=== PATIENT | female | born 1955 | race Caucasian/White ===

== ENCOUNTER 2019-11-02 02:13 | Day surgery (SDC) | payer BC, SELFPAY ==
[2019-10-19 11:58] VITALS: BMI 28.1
--- NOTE | 2019-10-31 22:43 | HP_ITS ---
DATE OF SERVICE: 11/02/2019 PREOPERATIVE DIAGNOSIS: Squamous cell carcinoma, well differentiated, left midline pretibia. HISTORY OF PRESENT ILLNESS: This site was biopsied by Dr. Gardner on 10/05/2019. The biopsy site was 12 mm x 11 mm and was visible on her visit with me on 10/17/2019. The patient is 64. The biopsy is squamous cell carcinoma, well differentiated and the request is for excision of this. The patient understands that this area is difficult to close, sometimes partly due to her age, partly due to it being on the lower extremity, and partly due to consequences of swelling in the leg or other reason for poor circulation. She is agreeable to performing this surgery under local anesthetic and realizes there will be frozen section sent and that a full-thickness skin graft from another location such as her thigh on the same side is a very great possibility. She understands that requires special dressings and there will be a donor site and there is a possibility of infection or skin graft loss or delayed healing. PAST MEDICAL HISTORY: Significant for massive weight loss following a gastric bypass in 2007. She has kept her weight low since then. She is not taking any medications for renal failure, but she sees Dr. Damaris jeffrey as her primary care physician. PAST SURGICAL HISTORY: Other surgeries include cholecystectomy in 1996, appendectomy around 2001. She had the laparoscopic Lien-en-Y in 2007. She had a lower body lift in 2011. ALLERGIES: TO PENICILLIN AND CIPRO SHE SAYS. CURRENT MEDICATIONS: Include: 1. Bupropion 300 mg 2 per day. 2. Lisinopril 5 mg daily. 3. Clorazepate 3.75 mg 2 per day. 4. Janumet two per day. 5. Pindolol 5 mg per day. REVIEW OF SYSTEMS: She is a type 2 diabetic. Says she has slight diminished renal capacity. She has intolerance to NSAIDs. She has a history of pancreatitis. She has some arthritic pain and she has high blood pressure. FAMILY HISTORY: Noncontributory. SOCIAL HISTORY: She is 64. She appears her age. She is very active. PHYSICAL EXAMINATION: HEENT: Unremarkable. CHEST: Clear to auscultation. HEART: Regular rate and rhythm by palpation. ABDOMEN: Soft and nontender. EXTREMITIES: Normal. She has some lipodystrophy in various parts of her body. She has had a nice outcome from her lower body lift. SKIN: Reveals the biopsy site on the left midline of the pretibia, the left lower extremity. ASSESSMENT: Squamous cell carcinoma of left midline pretibia. DIAGNOSIS: Excision of squamous cell carcinoma on the left midline pretibia with frozen section and possible full-thickness skin graft. This will be under local anesthetic. D I MT: Suzette VICTORIA
[2019-11-02] VITALS (10 sets, daily range): BP systolic 90–122; BP diastolic 46–76; PULSE 68–82; RESP 16–20; TEMP 36.1; O2SAT 97–100
--- NOTE | 2019-11-02 07:19 | WPDHPUPDATE1 ---
History and Physical Update Update Date/Time: 11/02/19 07:19 History and Physical has been reviewed, including an updated exam of the patient. There are NO changes in the patient's condition. Risks, benefits, and alternatives have been discussed and questions answered. Patient agrees to proceed with procedure.
--- NOTE | 2019-11-02 07:59 | P.OPB_ITS ---
Procedure Note - Brief Procedure Note - Brief Date of procedure: 11/02/19 Pre-op diagnosis: Squamous Cell Carcinoma Lt Midline Pretibia Post-op diagnosis: same Procedure performed: 1.7 cm excision of SCC of left pretibia with FS and complex repair 6.0. Anesthesia: local Surgeon: Sergio Mcmahon MD Seamer Elastic Band: Salomon Rasheed Estimated blood loss (mL): 2 Drains: No Packing: No Pathology: yes Complications: No immediate complications Condition: stable Disposition: same day
[2019-11-02] MEDS: LIDO 1%/EPINEPHRINE 1:100,000 20 ML VIAL INFILTRATE (08:25)
--- NOTE | 2019-11-02 09:15 | P.OP_ITS ---
Procedure Note - Detailed Date of procedure: 11/02/19 Pre-op diagnosis: Squamous Cell Carcinoma Lt Midline Pretibia Post-op diagnosis: same (Squamous cell carcinoma of the left midline PRE tibia) Procedure performed: 1.7 cm excision of squamous cell carcinoma of the left midline PRE tibia with frozen section and complex repair 6.0 cm Description of procedure: The site was marked in the holding area. The patient was taken to the operating room and placed supine on the operating table. A time-out was held and confirmed. The extremity was prepped and draped in usual fashion including the left thigh for potential skin graft donor site. The site of the tumor was marked for margins and axis. The site was locally infiltrated with 1% lidocaine with epinephrine. The full-thickness skin ellipse to include subcutaneous tissue was incised and elevated from the wound. The most superior aspect was marked with a suture for the 12 o'clock position. This tissue was sent to pathology for frozen section. While the tissue was out, the margins of this wound were undermined 2 cm in all directions with sharp and blunt dissection at the deep fascial level. This allowed us to coapted wound margins using 3-0 intradermal and superficial fas cial sutures. Our ability to do this obviated the need for a full-thickness skin graft. The pathologist reported the presence of very little squamous cell carcinoma and all margins free. The closure was completed with removal of standing cones at both ends, additional deeply position Vicryl sutures and closure of the skin with a running 5 0 nylon suture. A Xeroform, gauze, Tegaderm dressing was applied. The patient is discharged home with a prescription for tramadol 50 mg number 8. Surgeon: Sergio Mcmahon MD
== END 2019-11-02 09:56 | disposition home or self-care (01) ==
PROVIDERS: PCP Family Medicine; Visit Provider Plastic Surgery
PROC: (CPT 11602; principal; 2019-11-02 07:30)
DX: C44.729 Squamous cell carcinoma of skin of left lower limb, including hip (principal); I10 Essential (primary) hypertension; Z98.84 Bariatric surgery status
CPT/HCPCS: 11602; 13121; 88305; 88331; A9270

== ENCOUNTER 2020-11-26 13:31 | Outpatient (CLI) | payer BC, SELFPAY | END 2020-11-26 13:32 | disposition home or self-care (01) | LOC: ANHCOVIDVC 13:31 | PROVIDERS: PCP Family Medicine | DX: Z23 Encounter for immunization (principal) | CPT/HCPCS: 0001A; 91300 ==

== ENCOUNTER 2020-12-17 13:30 | Outpatient (CLI) | payer BC, SELFPAY | END 2020-12-17 13:31 | disposition home or self-care (01) | LOC: ANHCOVIDVC 13:30 | PROVIDERS: PCP Family Medicine | DX: Z23 Encounter for immunization (principal) | CPT/HCPCS: 0002A; 91300 ==

== ENCOUNTER → 2020-12-24 01:36 | Outpatient (CLI) | payer BC, SELFPAY ==
[2020-12-24 20:13] LABS: SARS-CoV-2 RNA PCR Negative
== END ==
PROVIDERS: PCP Family Medicine; Visit Provider Plastic Surgery
DX: Z01.812 Encounter for preprocedural laboratory examination (principal); Z20.822 Contact with and (suspected) exposure to COVID-19
CPT/HCPCS: C9803; U0003; U0005

== ENCOUNTER 2020-12-24 08:43 | Outpatient (CLI) | payer BC, SELFPAY ==
--- NOTE | 2020-12-24 08:30 | ECG_ITS ---
Measurements Intervals [place] Rate: 68 P: 67 WA: 141 QRS: -35 QRSD: 101 T: 93 QT: 365 QTc: 390 Interpretive Statements SINUS RHYTHM LEFT AXIS DEVIATION BORDERLINE R WAVE PROGRESSION, ANTERIOR LEADS NONSPECIFIC T-WAVE ABNORMALITY- HIGH LATERAL LEADS BASELINE ARTIFACT- I, II, III, AVR, AVL, AVF, V6 BORDERLINE ECG Electronically Signed On 12-24-2020 9:09:28 CDT by Cuate Colunga D.O.
[2020-12-24 09:08] LABS: Hematocrit 37.2 % (37.0-47.0); Hemoglobin 11.6 g/dL (12.0-15.0)
[2020-12-24 09:24] LABS: Anion Gap 9 mmol/L (8-16); Blood Urea Nitrogen 34 mg/dL (7-17); Calcium 9.1 mg/dL (8.4-10.2); Carbon Dioxide 25 mmol/L (22-30); Chloride 106 mmol/L (98-107); Estimated Glomerular Filt Rate 27; Glucose 116 mg/dL (65-105); Potassium 4.7 mmol/L (3.4-5.0); Sodium 140 mmol/L (137-145)
== END 2020-12-24 08:44 | disposition home or self-care (01) ==
LOC: ANHSURGERY 08:47
PROVIDERS: Anesthesiology; PCP Family Medicine; Visit Provider Plastic Surgery
DX: Z01.818 Encounter for other preprocedural examination (principal); I10 Essential (primary) hypertension; E11.9 Type 2 diabetes mellitus without complications; D64.9 Anemia, unspecified
CPT/HCPCS: 36415; 80048; 85014; 85018; 93005

== ENCOUNTER 2020-12-27 01:48 | Day surgery (SDC) | payer BC, SELFPAY ==
[2020-12-17 18:06] VITALS: BMI 21.2
--- NOTE | 2020-12-27 07:26 | WPDHPUPDATE1 ---
History and Physical Update Update Date/Time: 12/27/20 07:26 History and Physical has been reviewed, including an updated exam of the patient. There are NO changes in the patient's condition. Risks, benefits, and alternatives have been discussed and questions answered. Patient agrees to proceed with procedure.
[2020-12-27] MEDS: LACTATED RINGERS 1,000 ML 30 ML IV CONT (08:00)
[2020-12-27 08:08] LABS: Glucose Point of Care 109 (65-105)
[2020-12-27 08:09] VITALS: BP 129/58; PULSE 77; TEMP 36.6; O2SAT 100
[2020-12-27 08:15] LABS: INR 0.9; Prothrombin Time 13.1 Seconds (11.1-14.7)
[2020-12-27 08:16] LABS: Partial Thromboplastin Time 34.3 SECONDS (22.3-36.8)
--- NOTE | 2020-12-27 09:08 | WPDANESEPPF ---
Anes - Initial Pre Proc Eval Procedure: Operation Date: 12/27/20 09:15 Proposed Procedures p Excision Of Squamous Cell Carcinoma In Situ Left Dorsal Foot, With Frozen Section And Full Thickness Skin Graft - Sergio Mcmahon MD Date/Time: 12/27/20 09:08 Surgeon: Sergio Mcmahon MD Pre Op Diagnosis: Squamous Cell Carcinoma In Situ Left Dorsal Foot Patient Data Age: 65 Gender: F Height: 5 ft 8 in Weight: 70.5 kg Last Vital Signs Temp 36.6 C 12/27/20 08:09 Pulse 77 12/27/20 08:09 BP 129/58 L 12/27/20 08:09 Pulse Ox 100 12/27/20 08:09 Allergies Allergy/AdvReac Type Severity Reaction Status Date / Time ciprofloxacin Allergy Severe Hives Verified 12/27/20 07:43 Penicillins Allergy Mild Rash Verified 12/27/20 07:43 Home Medications Medication Instructions Recorded Confirmed Type Zyrtec 10 mg PO DAILY 10/19/19 12/27/20 History biotin 1 mg PO DAILY 10/19/19 12/27/20 History ferrous sulfate [iron] 325 mg PO DAILY 10/19/19 12/27/20 History bupropion HCl 300 mg 24 hr tablet, See Rx Instructions .ROUTE 09/04/20 12/27/20 Rx extended release .COMPLEX #90 tablet sitagliptin 50 mg-metformin 1,000 See Rx Instructions .ROUTE 09/04/20 12/27/20 Rx mg tablet .COMPLEX #180 tablet clorazepate dipotassium 3.75 mg PO BID 12/17/20 12/27/20 History cyanocobalamin (vitamin B-12) 5,000 mcg PO DAILY 12/17/20 12/27/20 History [Vitamin B-12] lisinopril 5 mg PO HS 12/17/20 12/27/20 History melatonin 1 mg PO HS PRN 12/17/20 12/27/20 History Laboratory Tests 12/27/20 12/27/20 07:54 08:04 PT 13.1 Seconds Seconds (11.1-14.7) INR 0.9 APTT 34.3 SECONDS SECONDS (22.3-36.8) POC Capillary Glucose 109 mg/dl mg/dl (65-105) Patient hx anesthesia problems: none Family hx anesthesia problems: none PMFSH Past Medical History Medical History Anxiety Chronic kidney disease, stage 3 (moderate) Hypertension Iron deficiency anemia Reactive depression Type 2 diabetes mellitus without complications Vitamin B 12 deficiency Vitamin D deficiency Surgical History Surgical History History of carpal tunnel release History of gastric bypass Family History Family History Other Acute myocardial infarction Carcinoma of colon Family history of malignant neoplasm Hypertension Social History Social History Smoking status: Never smoker Second hand tobacco smoke exposure: No Alcohol intake: never Substance use: never Living arrangements: alone Spiritual care concerns: No Anes - Eval Final PreProcedure Day of Procedure 12/27/20 09:08 Patient weight: normal Heart: regular rate and rhythm Lungs: clear to auscultation Airway: Mallampati scale class II Neurological: alert and oriented Last oral intake: >/= 8 hours ASA classification: III Emergent: no Anesthetic plan: proceed Anesthesia type and monitoring: general LMA and standard monitoring Informed Consent: The patient's anesthetic plan and its attendant risks and benefits were discussed with the patient/family/POA. Questions were solicited and answers provided to the satisfaction of the patient/family/POA.
[2020-12-27] MEDS: LIDO 1%/EPINEPHRINE 1:100,000 50 ML VIAL INFILTRATE (09:26)
--- NOTE | 2020-12-27 10:22 | PM.PROC ---
Procedure Note - Detailed Date of procedure: 12/27/20 Pre-op diagnosis: Squamous Cell Carcinoma In Situ Left Dorsal Foot Post-op diagnosis: same Procedure performed: 1.5 cm excision squamous cell carcinoma in situ left dorsal foot with frozen section and intermediate repair 2.8 cm Description of procedure: The biopsy site the left dorsal foot was marked in holding area. The patient was taken to the operating room and placed supine on the operating table. A time-out was held and confirmed. She was given IV anesthetic. The site was carefully outlined for axis and margins and infiltrated with 1% lidocaine with epinephrine. The full-thickness skin ellipse was taken to include skin and underlying fat. Neurovascular structures directly beneath this specimen were left in place. The specimen was sent for frozen section. When had to close the wound. This required undermining 2 cm or more in all directions. We were able to advance the skin from both sides to the midline and closed this wound with intradermal 3-0 Vicryl suture and 5 0 nylon suture. It was my purpose at the closure to avoid creation of compression directly over the dorsal neurovascular structures. That was the reason for undermining the skin so widely. destabilized the bandage. The wound was dressed Xeroform with, fluff gauze and Tegaderm. 0ver this was applied a light Kerlix wrap and 3 in Coban to stabilize the bandage. Anesthesia: MAC Surgeon: Sergio Mcmahon MD Estimated blood loss (mL): 2 Drains: No Packing: No Pathology: yes Complications: No immediate complications Condition: stable Disposition: same day Findings: No residual SCIS.
[2020-12-27 10:23] VITALS: BP 99/53; PULSE 74; RESP 14; O2SAT 95
[2020-12-27 10:40] LABS: Glucose Point of Care 88 (65-105)
[2020-12-27 10:50] VITALS: BP 117/65; PULSE 77; RESP 14; O2SAT 96
[2020-12-27 11:20] VITALS: BP 135/67; PULSE 67; RESP 16
== END 2020-12-27 11:26 | disposition home or self-care (01) ==
PROVIDERS: PCP Family Medicine; Visit Provider Plastic Surgery
PROC: (CPT 11622; principal; 2020-12-27 09:15)
DX: C44.729 Squamous cell carcinoma of skin of left lower limb, including hip (principal); I12.9 Hypertensive chronic kidney disease with stage 1 through stage 4 chronic kidney disease, or unspecified chronic kidney disease; E11.22 Type 2 diabetes mellitus with diabetic chronic kidney disease; N18.30 Chronic kidney disease, stage 3 unspecified; D50.9 Iron deficiency anemia, unspecified; E55.9 Vitamin D deficiency, unspecified; E53.8 Deficiency of other specified B group vitamins; F41.8 Other specified anxiety disorders; Z79.84 Long term (current) use of oral hypoglycemic drugs
CPT/HCPCS: 11622; 12042; 36415; 85610; 85730; 88305; 88331; A9270; J1100; J2250; J2405; J2704; J3010; J7120

== ENCOUNTER 2022-05-05 10:11 | Outpatient (CLI) | payer BC, SELFPAY ==
--- NOTE | ~2022-05-05 | MMUS_ITS ---
EXAMINATION: MM diagnostic sanjana BI w thom, US breast LT limited HISTORY: Pain of the outer left breast TECHNIQUE: Craniocaudal, mediolateral, and mediolateral oblique 3-D tomosynthesis images of the breas ts were performed and synthetic 2-D images were generated. CAD analysis was submitted and interpreted . High resolution limited left breast ultrasound was performed. COMPARISON: 09/24/2017, 09/23/2016, 08/09/2014 BREAST PARENCHYMAL COMPOSITION: The breasts are almost entirely fatty. FINDINGS: MAMMOGRAPHIC FINDINGS: There is no suspicious mass, calcification, or architectural distortion in either breast to suggest malignancy. There has been no suspicious interval change. Scattered benign-appearing calcifications a re present. ULTRASOUND: There is no evidence of focal abnormal solid or cystic mass in the vicinity of the patient's left lawrence ast pain. IMPRESSION: 1. No specific mammographic or sonographic correlate is identified for the patient's left breast pain . Further evaluation at this time should be based on clinical assessment. Continued follow-up physica l examination is recommended. 2. Recommend routine screening mammography in one year. BI-RADS Category 2: Benign finding(s). Reviewed, dictated and finalized at location A. IMPRESSION: 1. No specific mammographic or sonographic correlate is identified for the valentino ent's left breast pain. Further evaluation at this time should be based on clin ical assessment. Continued follow-up physical examination is recommended. 2. Recommend routine screening mammography in one year. BI-RADS Category 2: Benign finding(s).
== END 2022-05-05 10:12 | disposition home or self-care (01) ==
PROVIDERS: PCP Family Medicine; Visit Provider Obstetrics & Gynecology
DX: N64.4 Mastodynia (principal)
CPT/HCPCS: 76642; 77062; 77066; G0279

== ENCOUNTER 2022-05-29 12:04 | Emergency (ER) | payer OTHER, BC, SELFPAY ==
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
[2022-05-29 12:41] VITALS: BP 130/65; PULSE 76; RESP 18; TEMP 36.4; O2SAT 100
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
== END 2022-05-29 15:38 | disposition home or self-care (01) ==
PROVIDERS: Emergency Provider Emergency Medicine; PCP Family Medicine
DX: S13.4XXA Sprain of ligaments of cervical spine, initial encounter (principal); S16.1XXA Strain of muscle, fascia and tendon at neck level, initial encounter; I12.9 Hypertensive chronic kidney disease with stage 1 through stage 4 chronic kidney disease, or unspecified chronic kidney disease; E11.22 Type 2 diabetes mellitus with diabetic chronic kidney disease; N18.30 Chronic kidney disease, stage 3 unspecified; D50.9 Iron deficiency anemia, unspecified; E55.9 Vitamin D deficiency, unspecified; E53.8 Deficiency of other specified B group vitamins; Z98.84 Bariatric surgery status; M47.812 Spondylosis without myelopathy or radiculopathy, cervical region; M47.814 Spondylosis without myelopathy or radiculopathy, thoracic region; V49.40XA Driver injured in collision with unspecified motor vehicles in traffic accident, initial encounter
CPT/HCPCS: 72125; 72128; 99284

== ENCOUNTER → 2022-11-11 08:23 | Outpatient (CLI) | payer MEDICARE, SELFPAY ==
--- NOTE | ~2022-11-11 | US_ITS ---
EXAMINATION: US carotid duplex BI DATE: 11/11/2022 08:44 INDICATION: Type 2 diabetes mellitus without complications. TECHNIQUE: Grayscale, color Doppler, and pulsed Doppler images of the cervical carotid arteries were obtained. The degree of vessel stenosis is placed in one of the following categories: normal, <50%, 5 0-69%, >=70% but less than near-occlusion, near-occlusion, or total occlusion. Note that percent sten osis relative to normal distal artery lumen diameter is indirectly measured from velocity measurement s as described by Luiz, et al. Radiology 2003; [id number]. COMPARISON: None. FINDINGS: RIGHT: The right common carotid artery (CCA) peak systolic velocity (PSV) is 70 cm/s. The right internal car otid artery (ICA) PSV is 82 cm/s. The right ICA end-diastolic velocity (EDV) is 28 cm/s. The right IC A/CCA PSV ratio is 1.2. Grayscale and color Doppler images yield an estimate of <50% diameter reducti on from plaque in the ICA. There is antegrade flow in the right vertebral artery. LEFT: The left CCA PSV is 91 cm/s. The left ICA PSV is 103 cm/s. The left ICA EDV is 31 cm/s. The left ICA/ CCA PSV ratio is 1.1. Grayscale and color Doppler images yield an estimate of <50% diameter reduction from plaque in the ICA. There is antegrade flow in the left vertebral artery. IMPRESSION: 1. <50% stenosis in the right internal carotid artery. 2. <50% stenosis in the left internal carotid artery. Reviewed, dictated and finalized at location A. [facility]
== END ==
PROVIDERS: PCP Family Medicine; Visit Provider Family Medicine
DX: E11.9 Type 2 diabetes mellitus without complications (principal); I65.23 Occlusion and stenosis of bilateral carotid arteries
CPT/HCPCS: 93880

== ENCOUNTER 2022-12-08 06:59 | Day surgery (SDC) | payer MEDICARE, SELFPAY ==
[2022-11-27 08:43] VITALS: BMI 24.6
[2022-12-08 07:15] VITALS: BP 140/77; PULSE 72; RESP 14; TEMP 36.4; O2SAT 100
[2022-12-08 07:40] LABS: Glucose Point of Care 153 mg/dl (65-105)
--- NOTE | 2022-12-08 08:06 | PM.HPGS ---
History of Present Illness History of Present Illness Consent: Risks, benefits, and alternatives have been discussed and questions answered. Patient agrees to proceed with procedure. Chief complaint: Neoplasm Screening Narrative: Rachell Reece is a 67 year old female Presents for screening colonoscopy. Patient's current weight appetite and bowel movements are normal. She denies abdominal pain. She has had no bleeding. Family history is significant that her father had colon cancer. Patient's last colonoscopy 2016 was unremarkable. Patient also has a past medical history of gastric bypass in 2007 that has worked well. Review of Systems Review of Systems: Review of systems not contributory. [facility] Past Medical History Medical History (Updated 12/08/22 @ 08:07 by Salomon Brumfield MD) Anxiety Chronic kidney disease, stage 3 (moderate) FH: carotid endarterectomy Hypertension Iron deficiency anemia Reactive depression Type 2 diabetes mellitus without complications Vitamin B 12 deficiency Vitamin D deficiency Surgical History Surgical History History of carpal tunnel release History of gastric bypass Family History Family History Other Acute myocardial infarction Carcinoma of colon Family history of malignant neoplasm Hypertension Social History Social History (Updated 11/03/22 @ 13:52 by Lori Lundberg [facility]) Smoking status: Never smoker Second hand tobacco smoke exposure: No Alcohol intake: current Alcohol use details: rarely Substance use: never Substance use type: does not use Lack of Transportation: No Lack of Food: Never True Current Housing: I Have Housing Concerned About Future Housing: No Difficulty Paying Gas/Electric Bills: No Difficulty Paying for Meds: No Currently Unemployed: No Education: Trade/Vocational Certificate Difficulty w/ Childcare or Family Care: No Living arrangements: with family Gender identity (if verbalized by the patient): Female Spiritual care concerns: No Agree to blood products: Yes Meds Home Medications and Allergies Home Medications Medication Instructions Recorded Confirmed Type biotin 1 mg capsule 1 mg PO DAILY 10/19/19 12/08/22 History cetirizine 10 mg capsule (Zyrtec) 10 mg PO DAILY 10/19/19 12/08/22 History ferrous sulfate 325 mg (65 mg 325 mg PO DAILY 10/19/19 12/08/22 History iron) tablet (iron) cyanocobalamin (vitamin B-12) 5,000 mcg PO DAILY 12/17/20 12/08/22 History 5,000 mcg sublingual tablet (Vitamin B-12) melatonin 1 mg tablet 1 mg PO HS PRN INSOMNIA 12/17/20 12/08/22 History tramadol 50 mg tablet 50 - 100 mg PO Q6H PRN pain #10 12/27/20 12/08/22 Rx tabs bupropion HCl 300 mg 24 hr tablet, See Rx Instructions .Route 08/04/22 12/08/22 Rx extended release .COMPLEX #90 tabs lisinopril 5 mg tablet 5 mg PO HS #90 tabs 08/04/22 12/08/22 Rx simvastatin 20 mg tablet 20 mg PO DAILY #90 tabs 08/04/22 12/08/22 Rx sitagliptin phosphate 50 1 tablet PO BID #180 tabs 08/04/22 12/08/22 Rx mg-metformin 1,000 mg tablet (Janumet) trazodone 100 mg tablet 100 mg PO QHS PRN insomnia #30 tabs 11/03/22 12/08/22 Rx sodium,potassium,mag sulfates 17.5 See Rx Instructions PO .COMPLEX 11/04/22 12/08/22 Rx gram-3.13 gram-1.6 gram oral soln #354 mL (Suprep Bowel Prep Kit) Allergies Allergy/AdvReac Type Severity Reaction Status Date / Time ciprofloxacin Allergy Severe Hives Verified 12/08/22 07:23 Penicillins Allergy Mild Rash Verified 12/08/22 07:23 Exam Narrative: Physical exam reveals patient to be alert. Vital signs stable. HEENT exam is unremarkable. Patient is anicteric. Lungs are clear to auscultation and percussion. Heart is without murmur or extra sounds. Abdomen bowel sounds are present soft nontender with no organomegaly. Digital external rectal exam is normal.
--- NOTE | 2022-12-08 08:55 | WPDANESEPPF ---
Anes - Initial Pre Proc Eval Procedure: Operation Date: 12/08/22 08:30 Proposed Procedures p Screening Colonoscopy - Salomon Brumfield MD Date/Time: 12/08/22 08:55 Surgeon: Salomon Brumfield MD Pre Op Diagnosis: Neoplasm Screening Patient Data Age: 67 Gender: F Height: 1.71 m Weight: 69.5 kg Allergies Allergy/AdvReac Type Severity Reaction Status Date / Time ciprofloxacin Allergy Severe Hives Verified 12/08/22 07:23 Penicillins Allergy Mild Rash Verified 12/08/22 07:23 Home Medications Medication Instructions Recorded Confirmed Type biotin 1 mg capsule 1 mg PO DAILY 10/19/19 12/08/22 History cetirizine 10 mg capsule (Zyrtec) 10 mg PO DAILY 10/19/19 12/08/22 History ferrous sulfate 325 mg (65 mg 325 mg PO DAILY 10/19/19 12/08/22 History iron) tablet (iron) cyanocobalamin (vitamin B-12) 5,000 mcg PO DAILY 12/17/20 12/08/22 History 5,000 mcg sublingual tablet (Vitamin B-12) melatonin 1 mg tablet 1 mg PO HS PRN INSOMNIA 12/17/20 12/08/22 History tramadol 50 mg tablet 50 - 100 mg PO Q6H PRN pain #10 12/27/20 12/08/22 Rx tabs bupropion HCl 300 mg 24 hr tablet, See Rx Instructions .Route 08/04/22 12/08/22 Rx extended release .COMPLEX #90 tabs lisinopril 5 mg tablet 5 mg PO HS #90 tabs 08/04/22 12/08/22 Rx simvastatin 20 mg tablet 20 mg PO DAILY #90 tabs 08/04/22 12/08/22 Rx sitagliptin phosphate 50 1 tablet PO BID #180 tabs 08/04/22 12/08/22 Rx mg-metformin 1,000 mg tablet (Janumet) trazodone 100 mg tablet 100 mg PO QHS PRN insomnia #30 tabs 11/03/22 12/08/22 Rx sodium,potassium,mag sulfates 17.5 See Rx Instructions PO .COMPLEX 11/04/22 12/08/22 Rx gram-3.13 gram-1.6 gram oral soln #354 mL (Suprep Bowel Prep Kit) Laboratory Tests 12/08/22 07:36 POC Capillary Glucose 153 mg/dl H mg/dl (65-105) Patient hx anesthesia problems: none Family hx anesthesia problems: none Results Review: All pre-operative results and documents have been reviewed as part of the pre-operative evaluation. [facility] Past Medical History Medical History (Updated 12/08/22 @ 08:07 by Salomon Brumfield MD) Anxiety Chronic kidney disease, stage 3 (moderate) FH: carotid endarterectomy Hypertension Iron deficiency anemia Reactive depression Type 2 diabetes mellitus without complications Vitamin B 12 deficiency Vitamin D deficiency Surgical History Surgical History History of carpal tunnel release History of gastric bypass Family History Family History Other Acute myocardial infarction Carcinoma of colon Family history of malignant neoplasm Hypertension Social History Social History (Updated 11/03/22 @ 13:52 by Lori Lundberg [facility]) Smoking status: Never smoker Second hand tobacco smoke exposure: No Alcohol intake: current Alcohol use details: rarely Substance use: never Substance use type: does not use Lack of Transportation: No Lack of Food: Never True Current Housing: I Have Housing Concerned About Future Housing: No Difficulty Paying Gas/Electric Bills: No Difficulty Paying for Meds: No Currently Unemployed: No Education: Trade/Vocational Certificate Difficulty w/ Childcare or Family Care: No Living arrangements: with family Gender identity (if verbalized by the patient): Female Spiritual care concerns: No Agree to blood products: Yes Anes - Eval Final PreProcedure Day of Procedure 12/08/22 08:55 Patient weight: normal Heart: regular rate and rhythm Lungs: clear to auscultation Airway: Mallampati scale class II Neurological: alert and oriented Last oral intake: >/= 8 hours ASA classification: III Emergent: no Anesthetic plan: proceed Anesthesia type and monitoring: general GIVS and standard monitoring Results Review: All pre-operative results and documents have been reviewed as part of the pre-operative norman
[2022-12-08] MEDS: LACTATED RINGERS 1,000 ML 150 ML IV CONT (09:00)
[2022-12-08 09:24] VITALS: BP 126/64; PULSE 58; RESP 18; O2SAT 100
[2022-12-08 09:34] VITALS: BP 136/72; PULSE 68; RESP 20; O2SAT 100
[2022-12-08 09:44] VITALS: BP 133/75; PULSE 60; RESP 20; O2SAT 100
--- NOTE | 2022-12-08 11:58 | WPDANESPN ---
Anes - Prog Note Post-Op Date/Time: 12/08/22 11:58 Cardiovascular status: normal Respiratory status: normal Airway patency: baseline Mental status: baseline Post-Op hydration status: normal Vital Signs: Last Vital Signs Temp 36.4 C L 12/08/22 07:15 Pulse 60 12/08/22 09:44 Resp 20 12/08/22 09:44 BP 133/75 12/08/22 09:44 Pulse Ox 100 12/08/22 09:44 O2 Del Method Room Air 12/08/22 09:44 Pain Score (VAS): 0 I/O: Intake & Output 12/07/22 12/08/22 12/08/22 23:59 07:59 15:59 Intake Total 200 Balance 200 12/08/22 07:36 POC Capillary Glucose 153 H Post-procedural complaints: none Patient Feedback: Patient satisfied with anesthetic care.
== END 2022-12-08 10:03 | disposition home or self-care (01) ==
PROVIDERS: PCP Family Medicine; Visit Provider Internal Medicine Gastroenterology
PROC: 0DJD8ZZ Inspection of Lower Intestinal Tract, Via Natural or Artificial Opening Endoscopic (ICD-10-PCS; CPT 45378; principal; 2022-12-08 08:30)
DX: Z80.0 Family history of malignant neoplasm of digestive organs (principal)
CPT/HCPCS: 45385

== ENCOUNTER 2022-12-08 09:00 | Outpatient (NON) | payer MEDICARE, SELFPAY | END 2022-12-08 09:01 | disposition home or self-care (01) | LOC: ANHLAB 12-09 09:05 | PROVIDERS: PCP Family Medicine; Visit Provider Internal Medicine Gastroenterology | DX: D12.2 Benign neoplasm of ascending colon (principal) | CPT/HCPCS: 88305 ==

== ENCOUNTER 2023-10-16 11:20 | Outpatient (CLI) | payer MEDICARE, SELFPAY ==
[2023-10-16 11:49] LABS: Basophils Percent Auto 0.4 % (0.2-1.2); Eosinophils Absolute Auto 0.2 K/mm3 (0-0.3); Eosinophils Percent Auto 2.1 % (0-4.4); Hematocrit 33.9 % (37.0-47.0); Hemoglobin 10.6 g/dL (12.0-15.0); Immature Granulocyte Absolute 0.02 K/mm3 (0.00-0.031); Immature Granulocyte Percent A 0.3 % (0-0.5); Lymphocytes Absolute Auto 1.22 K/mm3 (0.9-3.2); Lymphocytes Percent Auto 17.4 % (18.3-44.2); Mean Corpuscular HGB Conc 31.3 g/dl (32-36); Mean Corpuscular Hemoglobin 30.1 pg (26-34); Mean Corpuscular Volume 96.3 fl (80-100); Monocytes Absolute Auto 0.6 K/mm3 (0.1-0.6); Monocytes Percent Auto 9.1 % (2.6-8.5); Neutrophils Percent Auto 70.7 % (45.5-73.1); Platelet Count Result 249 k/mm3 (150-375); Red Blood Count 3.52 M/mm3 (4.2-5.4); Red Cell Distribution Width 12.8 % (11.5-14.5)
[2023-10-16 15:17] LABS: Iron 65 ug/dL (37-170)
[2023-10-16 15:27] LABS: Percent Iron Saturation 23 % (20-50)
[2023-10-16 16:28] LABS: Folic Acid > 20.0 ng/mL (2.76->20)
[2023-10-17 09:13] LABS: Vitamin B12 > 1000.0 pg/mL (239-931)
== END 2023-10-16 11:21 | disposition home or self-care (01) ==
LOC: ANHLAB 11:23
PROVIDERS: Nurse Practitioner Family; PCP Family Medicine; Visit Provider Internal Medicine Hematology & Oncology
DX: D64.9 Anemia, unspecified (principal)
CPT/HCPCS: 36415; 82607; 82728; 82746; 83540; 83550; 85025